=== PATIENT | female | born 1940 | race Caucasian/White ===

== ENCOUNTER → 2017-06-24 | Outpatient (CLI) | payer MEDICARE | END | disposition home or self-care (01) | LOC: RAD.S 06-20 16:29 → PTH.S 13:45 | DX: C55 Malignant neoplasm of uterus, part unspecified (principal); J90 Pleural effusion, not elsewhere classified; J98.11 Atelectasis; R93.2 Abnormal findings on diagnostic imaging of liver and biliary tract; K57.30 Diverticulosis of large intestine without perforation or abscess without bleeding ==

== ENCOUNTER → 2017-07-14 | Outpatient (CLI) | payer MEDICARE | END | disposition home or self-care (01) | LOC: RAD.S 10:53 | PROC: 0W9B3ZZ Drainage of Left Pleural Cavity, Percutaneous Approach (ICD-10-PCS; principal; 2017-07-14) | DX: R06.00 Dyspnea, unspecified (principal); C54.1 Malignant neoplasm of endometrium; C55 Malignant neoplasm of uterus, part unspecified ==